=== PATIENT | male | born 1970 | race Caucasian/White ===

== ENCOUNTER → 2020-09-30 | Day surgery (SDC) | payer BC ==
--- OUTSIDE RECORDS SUMMARY | 2020-09-30 09:42 | XMS REPORT | Clinical Summary ---
:1970 Author Organization [facility] Address [address] [place] [address] Care Team Providers Name Role Phone Margoth Sevilla MD Primary Care Provider Allergies No Known Active Allergies Medications Medication Sig Dispensed Refills Start Date End Date Status amlodipine-valsartan Take 1 1 07/10/2019 Active (EXFORGE) 10-160 mg tablet by per tablet mouth daily. desvenlafaxine Take 100 mg 0 07/20/2019 Ac tive (PRISTIQ) 100 MG 24 by mouth hr tablet daily. clonAZEPAM 0.5 mg as 0 05/13/2019 Active (KlonoPIN) 0.5 MG needed. tablet omeprazole Take 40 mg 0 Active (PriLOSEC) 40 MG by mouth capsule daily. rosuvastatin Take 10 mg 0 08/12/2020 Activ e (CRESTOR) 10 mg by mouth tablet daily. ergocalciferol TK 1 C PO Q 0 08/16/2020 Ac tive (VITAMIN D2) 50,000 WEEKLY unit capsule atorvastatin Take 10 mg 4 07/14/2019 Disco ntinued (LIPITOR) 10 MG by mouth 0 (Pat ient tablet daily. Reported) Active Problems Problem Noted Date Kidney mass 08/26/2019 Encounters Date Type Specialty Care Team Description 09/29/2020 Office Visit Urology Sylvia Paiz MD Renal yordan l carcinoma of left kidney (HC C) (Primary Dx) 09/29/2020 Travel 09/07/2020 Hospital Encounter Radiology Sylvia Paiz MD Ren al cell carcinoma of left kidney (HC C) 09/07/2020 Hospital Encounter Radiology Sylvia Paiz MD Ren al cell carcinoma of left kidney (HC C) 09/07/2020 Travel 08/31/2020 Travel 08/16/2020 Travel after 09/30/2019 Surgical History Surgery Date Site/Laterality Comments ENDOSCOPY, UGI LIVER BIOPSY 1998 NEPHRECTOMY, PARTIAL, 08/26/2019 Left Procedure: ROBOTIC ASSISTED LAPAROSCOPIC, LAPAROSCOPIC LEF T PARTIAL ROBOT-ASSISTED NEPHRECTOMY; [place]: Sylvia Paiz MD; Loc ation: [facility]; Service: Ur ology; Laterality: Left ; Medical devices from this surgery are in t he Implants section. Medical History Medical History Date Comments Melanoma (HCC) Hepatitis C 1998 completed treat ment. Anesthesia NHAP/MOTHER POST OP NAUSEA/VOMITING. DENIES SOB OR CHEST PAIN. Hypertension Hypercholesteremia GERD (gastroesophageal reflux disease) Sleep apnea USES CPAP Snoring Anxiety Tumor LEFT KIDNEY Wears contact lenses Wears glasses Hearing loss GREATER ON LEFT. Other dental procedure status CAPPED MAINE TH Dental crown present 4 top front teeth Social History Tobacco Use Types Packs/Day Years Used Date Former Smoker Cigarettes Quit: 1994 Smokeless Tobacco: Never Used Comments: IN HIGH SCHOOL Alcohol Use Drinks/Week oz/Week Comments Yes 15 Standard drinks or equivalent 15.0 Alcohol Habits Answer Date Recorded How often do you have a drink containing alcohol? Never 07/27/2019 How many drinks containing alcohol do you have on a typical Not asked day when you are drinking? How often do you have six or more drinks on one occasion? 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 Last Filed Vital Signs Vital Sign Reading Time Taken Comments Blood Pressure - - Pulse - - Temperature - - Respiratory Rate - - Oxygen Saturation - - Inhaled Oxygen Concentration - - Weight 104 kg (230 lb) 09/07/2020 10:13 AM CDT Height 177.8 cm (5' 10") 09/07/2020 10:13 AM CDT Body Mass Index 33 09/07/2020 10:13 AM CDT Plan of Treatment Health Maintenance Due Date Last Done Comments INFLUENZA VACCINE 06/11/2020 Implants Implanted Type Area Network Liaison Device Shelf Model / Identifier Expiration Serial / Date Lot Clip Ligtng Hem-O-Marysol Endoscpc Aplr Plymr Lg - [id number] Medica l N/A: N/A WECK CLOSURE [id number] / Implanted: Qty: 3 on 08/26/2019 by Sylvia Paiz MD at [facility] Clips for SYSTEMS / Internal Use Clip Ligtng Hem-O-Marysol Endoscpc Aplr Plymr Lg - [id number] Medica l N/A: N/A WECK CLOSURE [id number] / Implanted: Qty: 2 on 08/26/2019 by Sylvia Paiz MD at [facility] Clips for SYSTEMS / Internal Use Kit Selnt Fibrin Humn Hmsts Surgy 5ml Evicel - [id number] Surgic al N/A: N/A ETHICON US-EH 03/10/2021 [id number] / Implanted: Qty: 1 on 08/26/2019 by Sylvia Paiz MD at [facility] Implants; / Expanders; [id number] Extenders; Surgical Wires Procedures Procedure Name Priority Date/Time Associated Comments Diagnosis CT ABDOMEN W WO Routine 09/07/2020 11:23 AM Renal cell Resul ts for this CONTRAST CDT carcinoma of left procedure are in kidney (HCC) the results section. POC CREATININE Routine 09/07/2020 10:34 AM Result s for this CDT procedure are i n the results section. ESTIMATED GFR Routine 09/07/2020 10:34 AM Results for this CDT procedure are i n the results section. XR CHEST 2 VW Routine 09/07/2020 9:58 AM Renal cell Results for this CDT carcinoma of left procedure are in kidney (HCC) the results section. after 09/30/[address] Abdomen W Wo Contrast (09/07/2020 11:23 AM CDT) Specimen Narrative Performed At EXAMINATION: CT ABDOMEN W WO CONTRAST [facility] CLINICAL HISTORY: C64.2 Malignant neoplasm of left k idney except renal pelvis, RENAL CANCER COMPARISON: June 25, 2019, external study TECHNIQUE: Multiple axial CT images of the abdomen wer e obtained without and with IV contrast. . Sagittal and coronal reconstructions were done. CT imaging was performed with iterative reconstruction technique and/or automated exposure control to reduce rad iation dose. FINDINGS: HEPATOBILIARY: No focal hepatic lesion s. No biliary ductal dilation.. GALLBLADDER: Normal. SPLEEN: No splenomegaly. PANCREAS: No focal masses or ductal di lation. ADRENALS: No adrenal nodules. KIDNEYS: There are posterior changes of resection of the mass in the anterior cortex of the left kidney. There is scarring at this site with some traction on the adjacent descending colon. There is no free air or fluid collection involving the left kidney to suggest fistulization. There is a stable rig ht renal cyst measuring 2 cm without enhancing components. No solid renal mass seen otherwise in both kidneys. No hydronephrosis or stones . There is symmetric enhancement and contrast excre tion by both kidneys. No suspicious filling defects within the bilateral renal collecting system.. PERITONEUM/RETROPERITONEUM: No free air or fluid. No lymphadenopathy. Varicose veins surrounding the distal esophagus and GE junction stable from the prior exam. ABDOMINAL AORTA/IVC: No aneurysm or diss ection. GI TRACT: The bowel demonstrate no dis tention or wall thickening. BONES AND SOFT TISSUES: Unremarkable. VISUALIZED LOWER CHEST: Unremarkable. IMPRESSION: Complete resection of the left renal mass. There is sc arring at the site with traction on the adjacent descending colon. No sig ns of fistulization. [id number] Procedure Note Hm Interface, Radiology Results Incoming - 09/07/2020 3:21 PM CDT EXAMINATION: CT ABDOMEN W WO CONTRAST CLINICAL HISTORY: C64.2 Malignant neopl asm of left kidney except renal pelvis, RENAL CANCER COMPARISON: June 25, 2019, external s tudy TECHNIQUE: Multiple axial CT images of t he abdomen were obtained without and with IV contrast. . Sagittal and coronal reconstructions were done. CT imaging was performed with iterative reconstruction technique and/or automated exposure control to reduce radiation dose. FINDINGS: HEPATOBILIARY: No focal hepatic lesions . No biliary ductal dilation.. GALLBLADDER: Normal. SPLEEN: No splenomegaly. PANCREAS: No focal masses or ductal dil ation. ADRENALS: No adrenal nodules. KIDNEYS: There are posterior changes of resection of the mass in the anterior cortex of the left kidney. There is scarring at this site with some traction on the adjacent descending colon. There is no free air or fluid collection involving the left kidney to suggest fistulization. There i s a stable right renal cyst measuring 2 cm without enhancing components. No solid renal mass seen otherwise in both kidneys. No hydronephrosis or stones. There is symmetric enhancement and contrast excretion by both kidneys. No suspicious filling defe cts within the bilateral renal collecting system.. PERITONEUM/RETROPERITONEUM: No free air or fluid. No lymphadenopathy. Varicose veins surrounding the distal esophagus and GE junction stable from the prior exam. ABDOMINAL AORTA/IVC: No aneurysm or diss ection. GI TRACT: The bowel demonstrate no dist ention or wall thickening. BONES AND SOFT TISSUES: Unremarkable. VISUALIZED LOWER CHEST: Unremarkable. IMPRESSION: Complete resection of the left renal mas s. There is scarring at the site with traction on the adjacent descending colon. No signs of fistulization. [id number] Performing Organization Address [facility]/[place]IP [facility] [place] [facility] [address] [place] [address] Estimated GFR (09/07/2020 10:34 AM CDT) Pathologist [facility] [place] Estimated GFR >=90 mL/min/1.73 [facility] Comment: m2 HOSPITAL Catergory Units Interpretation G1 >=90 Normal or high G2 60-89 Mildly decreased G3a 45-59 Mildly to moderately decreas ed G3b 30-44 Moderately to severely decre ased G4 15-29 Severely decreased G5 <15 Kidney failure The eGFR was calculated using the Chronic Kidney Disea se Epidemiology Collaboration (CKD-EPI) equation. Interpretation is based on recommendations of the National Kidney Foundation-Kidney Disease Outcomes Surendra lity Initiative (NKF-KDOQI) published in 2014. Specimen Blood Performing Organization Address [facility] Phon e Number [facility] DEPARTMENT OF PATHOLOGY AND [address] [place], [place] [address] [address] [address] POC creatinine (09/07/2020 10:34 AM CDT) Pathologist [facility] [place] POC creatinine 0.9 0.7 - 1.2 [facility] Comment: mg/dl HOSPITAL Coding And Reimbursement Specialist Name: Fred Castellanos Device ID: [id number] Specimen Blood Performing Organization Address [facility] Phon e Number [facility] DEPARTMENT OF PATHOLOGY AND [address] [place] [address] [address] XR Chest 2 Vw (09/07/2020 9:58 AM CDT) Specimen Narrative Performed At EXAMINATION: XR CHEST 2 VW [facility] CLINICAL HISTORY: 50 years Male C64.2 Malignant neop lasm of left kidney except renal pelvis, RENAL CANC ER COMPARISON: August 26, 2019 IMPRESSION: The cardiomediastinal silhouette is not enlarged The lungs are clear The osseous structures are within normal limits. . . Procedure Note Interface, Radiology Results Incoming - 09/07/2020 10:02 AM CDT EXAMINATION: XR CHEST 2 VW CLINICAL HISTORY: 50 years Male C64.2 M alignant neoplasm of left kidney except renal pelvis, RENAL CANCER COMPARISON: August 26, 2019 IMPRESSION: The cardiomediastinal silhouette is not enlarged The lungs are clear The osseous structures are within normal limits. . . Performing Organization Address City/State/ZIP Code Phon e Number [facility] [address] [place] [address] after 09/30/2019 Advance Directives For more information, please contact: [phone] Type Date Recorded Patient Accident Report Clerk Explanati on Advance Directives, Living Will and Medical Power of Supervisor Sunglasses
--- OUTSIDE RECORDS SUMMARY | 2020-09-30 09:42 | XMS REPORT | Continuity of Care Document ---
:1970 Author Organization [facility] t Address [address] [place] [address] Care Team Providers Name Role Phone Di PEREYRA, C Primary Care Physician Sharon PEREYRA Attending Clinician Payers Payer Name Policy Type Policy Effective Date Expiration Date Sour ce Number BCBSBCBS CHOICE [id number] 2018 [place] PPO/FEDERAL 00:00:00 [employer] [id number] 2018-Presen tPPO Problems Condition Condition Condition Status Onset Resolution Last Treating Co mments Source Name Details Category Date Date Treatment Clinician Date Kidney Kidney Disease Active 2018-11 [facility] mass 0-16 [facility] 00:00: st 00 Allergies, Adverse Reactions, Alerts This patient has no known allergies or adverse reactions. Social History Social Habit Start Date Stop Date Quantity Comments Source History of tobacco Current smoker [place] [facility] use History [facility] Meth odist Alcohol Std Drinks History [facility] Alcohol Binge Sex Assigned At [facility] ethodist Exposure to Not sure [place] Metho dist SARS-CoV-2 (event) Tobacco use and 2020-09-07 2020-09-07 Never used [facility] ethodist exposure 00:00:00 00:00:00 Alcohol intake 2020-09-07 2020-09-07 Current drinker [place] [facility] 00:00:00 00:00:00 of alcohol (finding) Tobacco Comment 2019-08-06 2019-08-06 IN [employer] [place] [facility] 00:00:00 00:00:00 History SDOH 2019-07-27 2019-07-27 1 [place] [facility] Alcohol Frequency 00:00:00 00:00:00 Smoking Status Start Date Stop Date Source Former smoker 2020-09-07 00:00:00 2020-09-07 00:00:00 Curt Sequeira Medications Ordered Filled Start Stop Current Ordering Indication Dosage Frequency Signature Comments Components Source Medication Medication Date Date Medication? Clinician (SIG) Name Name ergocalcife 2019-11 Yes TK 1 C PO [place] rol 0-06 Q WEEKLY [facility] (VITAMIN 00:00: st D2) 50,000 00 unit capsule rosuvastati 2019-11 Yes 10mg QD Take 10 mg Curt n (CRESTOR) 0-02 by mouth Meth brayan 10 mg 00:00: daily. st tablet 00 omeprazole 2018-11 Yes 40mg QD Take 40 mg [place] (PriLOSEC) 0-18 by mouth Metho di 40 MG 14:10: daily. st capsule 56 desvenlafax Yes 100mg QD Take 100 [place] ine 9-09 mg by [facility] (PRISTIQ) 00:00: mouth st 100 MG 24 00 daily. hr tablet atorvastati 2019- No 10mg QD Take 10 mg Curt n (LIPITOR) 9-03 28 by mouth Met hodi 10 MG 00:00: 00:[address] tablet 00 :00 amlodipine- Yes 1{tbl} QD Take 1 Ryan king valsartan 8-30 tablet by [facility] di (EXFORGE) 00:00: mouth st 10-160 mg 00 daily. per tablet clonAZEPAM Yes .5mg 0.5 mg as Ryan king (KlonoPIN) 703 needed. Method i 0.5 MG 00:00: st tablet 00 Vital Signs Vital Name Observation Time Observation Value Comments Source Body height 2020-09-07 10:13:00 177.8 cm Curt Sequeira Body weight 2020-09-07 10:13:00 104.327 kg Curt Sequeira BMI 2020-09-07 10:13:00 33.00 kg/m2 Curt Sequeira Procedures Procedure Date / Time Performed Performing Clinician Sourc e CT ABDOMEN W WO CONTRAST 2020-09-07 11:23:00 Sylvia Paiz ESTIMATED GFR 2020-09-07 10:34:00 Sylvia Paiz POC CREATININE 2020-09-07 10:34:00 Sylvia Paiz Meth odist XR CHEST 2 VW 2020-09-07 09:58:03 Sylvia Paiz Meth odist Plan of Care Planned Activity Planned Date Details Comments Source Future Scheduled 2020-06-11 INFLUENZA VACCINE Sona vargas [facility] Test 00:00:00 [code = INFLUENZA VACCINE] Encounters Start End Encounter Admission Attending Care Care Encounter Source Date/Time Date/Time Type Type Clinicians Facility Department ID 2020-09-29 2020-09-29 Outpatient SH[facility]ON [facility] [id number] [place] 00:00:00 00:00:00 SYLVIA [address] 2020-09-07 2020-09-07 Outpatient SHARON [facility] [id number] [place] 00:00:00 00:00:00 SYLVIA [address] 2020-09-07 2020-09-07 Outpatient [facility]ON [facility] [id number] [place] 00:00:00 00:00:00 SYLVIA [address] Results Test Description Test Time Test Comments Results Result Sourc e Comments CT Abdomen W Wo 2020-08-12 Alberto Sona vargas Contrast [address] 15:18:09 09/07/2020 3:21 PM CDTEXAMINATION: CT ABDOMEN W WO CONTRASTCLINICAL HISTORY: C64.2 Malignant neoplasm of left kidney except renal pelvis, RENAL CANCERCOMPARISON: June 25, 2019, external studyTECHNIQUE: Multiple axial CT images of the abdomen were obtained without and with IV contrast. . Sagittal and coronal reconstructions were done. CT imaging was performed with iterative reconstruction technique and/or automated exposure control to reduce radiation dose.FINDINGS:HEPATOB ILIARY: No focal hepatic lesions. No biliary ductal dilation..GALLBLADDER : Normal.SPLEEN: No splenomegaly.PANCREAS : No focal masses or ductal dilation.ADRENALS: No adrenal nodules.KIDNEYS: There are posterior changes of resection of the mass in the anterior cortex of the left kidney. There is scarring at this site with some traction on the adjacent descending colon. There is no free air or fluid collection involving the left kidney to suggest fistulization. There is a stable right renal cyst measuring 2 cm without enhancing components. No solid renal mass seen otherwise in both kidneys. No hydronephrosis or stones. There is symmetric enhancement and contrast excretion by both kidneys. No suspicious filling defects within the bilateral renal collecting system..PERITONEUM/RE TROPERITONEUM: No free air or fluid. No lymphadenopathy. Varicose veins surrounding the distal esophagus and GE junction stable from the prior exam.ABDOMINAL AORTA/IVC: No aneurysm or dissection.GI TRACT: The bowel demonstrate no distention or wall thickening.BONES AND SOFT TISSUES: Unremarkable.VISUALIZ ED LOWER CHEST: Unremarkable.IMPRESSI ON:Complete resection of the left renal mass. There is scarring at the site with traction on the adjacent descending colon. No signs of fistulization.[id number] POC creatinine 2020-09-07 11:03:07 Test Item Value Reference Range Interpretation Comme nts POC creatinine (test code = 0.9 mg/dl 0.7-1.2 Fur Remodeler Name: Fred Davis [id number]) ID: [id number] Curt SequeiraEstimated [id number] 11:03:07 Test Item Value Reference Range Interpretation Comments Estimated GFR (test >=90 mL/min/1.73 m2 Caterg maNeverware Units code = 56096-5) Interpretati onG1 >=90 Normal or highG2 60-89 Mildly wepppvlqgG6l 45-59 Mildly to mode rately [id number] 30-44 Moderately to severely decreasedG4 15-29 Severely decre asedG5 <15 Kidn ey failureThe eGFR was calculated usin g the Chronic Kidney Disease Epidemiology Co llaboration (CKD-EPI) equat ion. Interpretation is based on recommendations of the National Kidney Foundation-Kidn ey Disease Outcomes Qualit y Initiative (NKF-KDOQI) pub lished in 2014. Curt SequeiraXR Chest 2 [id number] 09:58:55Hm Interface, Radiology Results 09/07/2020 10:02 AM CDTEXAMINATION: XR CHEST 2 VWCLINICAL HISTORY: 50 years Male C64.2 Malignant neoplasm of left kidney except renal pelvis, RENAL CANCERCOMPARISON: August 26, 2019IMPRESSION:The cardiomediastinal silhouette is not enlarged The lungs areclear The osseous structures are within normal limits...Curt Sequeira
--- NOTE | 2020-09-30 11:35 | RAD REPORT ---
EXAM DESCRIPTION: US - Guided FNA Non Breast - 09/30/2020 10:50 am CLINICAL HISTORY: E04.1 COMPARISON: Thyroid Para Parotid Gland dated 09/12/2020 FINDINGS: Preoperative diagnosis: 14 mm left thyroid nodule. Post operative diagnosis: Same. Conscious Sedation: None Fluoroscopy time: None Contrast used: None Estimated blood loss: Minimal Specimens:5 x 25 gauge FNA specimens The left neck was prepped and draped in the usual sterile fashion. 1% lidocaine was infiltrated into the subcutaneous tissues for local anesthesia. Real time ultrasound scanning of the left thyroid lobe demonstrated 14 mm nodule with punctate calcifications. Under ultrasound guidance, using multiple 25 gauge FNA needles, 5 specimens were obtained of this lesion and sent to pathology for evaluation. Th ere were no complications. IMPRESSION: Successful ultrasound-guided left thyroid nodule FNA procedure.
== END ==
LOC: FNA 09:39
PROVIDERS: ATTEND Family Medicine
PROC: 0GBG3ZX Excision of Left Thyroid Gland Lobe, Percutaneous Approach, Diagnostic (ICD-10-PCS; principal; 2020-09-30)
PROC: BG44ZZZ Ultrasonography of Thyroid Gland (ICD-10-PCS; 2020-09-30)
DX: E04.1 Nontoxic single thyroid nodule (principal); E21.3 Hyperparathyroidism, unspecified
CPT/HCPCS: 88162